=== PATIENT | female | born 1965 | race Caucasian/White ===

== ENCOUNTER 2023-03-23 15:34 | Outpatient (OUT) | payer OTHER, SELFPAY | END 2023-03-23 15:35 | disposition home or self-care (01) | LOC: PST 15:34 | PROVIDERS: Visit Provider Surgery | DX: Z01.818 Encounter for other preprocedural examination (principal); N20.1 Calculus of ureter ==

== ENCOUNTER 2023-03-24 08:51 | Day surgery (SDC) | payer OTHER, SELFPAY ==
[2023-03-24] MEDS: LACTATED RINGER'S SOLUTION 1,000 ML 50 ML IV (09:10)
[2023-03-24 09:12] VITALS: BP 127/94; PULSE 98; RESP 18; TEMP 36.9; O2SAT 95; BMI 30.5
--- NOTE | 2023-03-24 09:44 | P.GSPRC_ITS ---
Date of procedure: 03/24/23 Indications for Procedure: epigastric abdominal pain Pre-op diagnosis: epigastric abdominal pain Post-op diagnosis: other (Schatzki's ring rule out esophagitis/healing prepyloric ulcers?) Procedure: EGD with biopsy antrum and distal esophagus Findings: Schatzki's ring rule out esophagitis ? Healing prepyloric ulcers Anesthesia: [facility] [place] Surgeon: Darnell Gomez Procedure Summary: she was taken the endoscopy suite placed in left lateral recumbent position given IV sedation by the tax technician. The Olympus EGD scope was advanced under direct visualization into the posterior pharynx esophagus into the stomach through the pylorus to the 1st 2nd 3rd and 4th portions of the duodenum which were completely normal. The scope was returned to the stomach retroflexed on itself looking at the GE junction which was normal. There are no gross tumors or polyps in the stomach but just prepyloric there were two or three small what appeared to be healing ulcers. No bleeding was seen. No gastritis noted. Biopsies were taken of the antrum. Scope was then withdrawn to the distal esophagus where she has a classic Schatzki's ring biopsies were taken of this area as well. The rest the esophagus was completely normal. The scope was removed from the mouth. She tolerated procedure well. She will be called with results of biopsies and further recommendations. She is not discontinued tobacco use as recommended normal and she discontinued excessive caffeine use is recommended. She did stop the nonsteroidal anti-inflammatory drugs. She should continueher omeprazole. Estimated blood loss (mL): 2 Complications: No Pathology: other (antral and distal esophageal biopsies) Condition: stable Disposition: PACU
[2023-03-24 09:54] VITALS: BP 97/57; PULSE 96; RESP 16; O2SAT 93
--- NOTE | 2023-03-24 10:12 | PC.NURSE ---
Dry cough noted
[2023-03-24 10:13] VITALS: BP 113/72; PULSE 100; RESP 16; O2SAT 94
--- NOTE | 2023-03-24 10:15 | PC.NURSE ---
infrequent dry cough noted
[2023-03-26 11:10] LABS: H Pylori Tissue, Urease Negative
== END 2023-03-24 10:25 | disposition home or self-care (01) ==
PROVIDERS: PCP Family Medicine; Visit Provider Surgery
PROC: (CPT 43239; principal; 2023-03-24 10:10)
DX: K22.2 Esophageal obstruction (principal); K25.9 Gastric ulcer, unspecified as acute or chronic, without hemorrhage or perforation; R10.13 Epigastric pain; E11.9 Type 2 diabetes mellitus without complications; E78.5 Hyperlipidemia, unspecified; F32.A Depression, unspecified; E06.3 Autoimmune thyroiditis; Z79.899 Other long term (current) drug therapy; Z79.890 Hormone replacement therapy; F17.210 Nicotine dependence, cigarettes, uncomplicated
CPT/HCPCS: 43239; 87077; 88305; 88313; 88342; 99999; J2704